=== PATIENT | male | born 1980 | race Two or more races ===

== ENCOUNTER 2019-04-14 19:32 | Emergency (ER) | payer SELFPAY ==
[~2019-04-14] VITALS: Ht 172.7 cm; Wt 90.7 kg
[2019-04-14 19:32] VITALS: BP 153/98
== END 2019-04-14 21:56 | disposition home or self-care (01) ==
LOC: ER 19:41
DX: J20.9 Acute bronchitis, unspecified (principal); F12.10 Cannabis abuse, uncomplicated
CPT/HCPCS: 71045-TC